=== PATIENT | female | born 1960 | race Caucasian/White ===

== ENCOUNTER → 2021-12-13 | Day surgery (SDC) | payer MEDICARE, OTHER ==
[~2021-12-13] MED LIST: AMITRIPTYLINE150 MG PO; AMLODIPINE BESYL5 MG PO; CRESTOR10 MG PO; CYCLOBENZAPRIN7.5 MG PO; DAILY VITE1 EACH PO; ESCITALOPRAM OX10 MG PO; FARXIGA10 MG PO; LANTUS100 UNIT/1 SC; LUBIPROSTONE24 MCG PO; LYRICA225 MG PO; MECLIZINE HCL25 MG PO; MELOXICAM7.5 MG PO; METFORMIN HCL1000 M1 PO; OMEPRAZOLE40 MG PO; PERCOCET 7.5-31 EACH PO; SAPHRIS5 MG SL; VICTOZA 1818 MG/3 ML SC
== END | disposition home or self-care (01) ==
LOC: OR 12-05 09:45
DX: M51.16 Intervertebral disc disorders with radiculopathy, lumbar region (principal); E11.9 Type 2 diabetes mellitus without complications; G89.29 Other chronic pain; M47.26 Other spondylosis with radiculopathy, lumbar region; Z79.4 Long term (current) use of insulin; Z79.899 Other long term (current) drug therapy
CPT/HCPCS: 77001; 82962; J1040; Q9967